=== PATIENT | female | born 1985 | race American Indian/Alaskan Native ===

== ENCOUNTER 2019-09-05 23:39 | Emergency (ER) | payer MEDICARE ==
[2019-09-06 00:25] LABS: Bilirubin,Urine NEG (Negative); Blood,Urine NEG (Negative); Color,Urine Yellow (Yellow); Mucus,Urine FEW /HPF; Protein,Urine <15 mg/dL mg/dL (Negative)
[2019-09-06 00:32] LABS: Amphetamine Screen,Urine PRESUMPTIVE NEGATIVE; Benzodiazepines Screen,Urine PRESUMPTIVE NEGATIVE; Cannabinoid Screen,Urine PRESUMPTIVE NEGATIVE; Methadone Screen,Urine PRESUMPTIVE NEGATIVE; Opiate Screen,Urine PRESUMPTIVE NEGATIVE
[2019-09-06 00:37] LABS: Basophils % (Auto) 0.4 % (0.0-1.8); Eosinophils # (Auto) 0.2 K/mm3 (0.0-0.4); Eosinophils % (Auto) 4.7 % (0.0-4.3); Hematocrit 36.3 % (30.3-42.9); Lymphocytes # (Auto) 1.5 K/mm3 (1.2-5.4); Lymphocytes % (Auto) 31.4 % (13.4-35.0); Mean Corpuscular HGB Conc 33 % (30-34); Mean Corpuscular Volume 92 fl (79-97); Monocytes # (Auto) 0.3 K/mm3 (0.0-0.8); Monocytes % (Auto) 6.2 % (0.0-7.3); Platelet Count 228 K/mm3 (140-440); Red Blood Count 3.95 M/mm3 (3.65-5.03); Red Cell Distribution Width 14.1 % (13.2-15.2)
[2019-09-06 00:55] LABS: BUN/Creatinine Ratio 16; Blood Urea Nitrogen 14 mg/dL (7-17); Hemolysis Index 3
[2019-09-06 00:59] LABS: HCG Qualitative,Urine Positive (Negative)
[2019-09-06 01:16] LABS: Calcium 9.1 mg/dL (8.4-10.2)
[2019-09-06 01:20] LABS: Cocaine Screen,Urine PRESUMPTIVE POSITIVE
--- NOTE | 2019-09-06 02:34 | Emergency Department Report ---
ED Psych HPI - General Chief Complaint: Psych Stated Complaint: SUICIDAL IDEATION DEPRESSION Time Seen by Provider: 09/06/19 02:01 Source: patient Mode of arrival: Ambulatory Limitations: No Limitations - History of Present Illness Initial Comments: Patient is a 33-year-old female that presents emergency room with complaints of depression and suicidal ideations. Patient states that she has a plan and she would probably overdose. Patient states she had depression for a long time. Patient states it is getting worse. Patient states she is hearing voices. Patient states that she talks to herself. Patient states she uses cocaine. Patient states she is is not . Patient denies homicidal ideations. Patient denies recent travel. Patient denies recent international travel. Patient denies exposure to the novel coronavirus. Patient denies sick contacts. Patient denies fever and chills. Patient denies cough. Patient denies diarrhe a. Patient denies coming in contact with anybody with symptoms of the novel coronavirus. MD Complaint: suicidal ideation, feels depressed -: Sudden Associated Psychiatric Symptoms: depression, suicidal ideation, racing thoughts, auditory hallucinations, visual hallucinations History of same: Yes Quality: constant Improves With: none Worsens With: none Context: recent alcohol abuse, recent drug abuse Associated Symptoms: denies other symptoms If Self Harm: admits thoughts of, has plan - Related Data Home Medications Medication Instructions Recorded Confirmed Last Taken No Known Home Medications [No 08/27/19 08/27/19 Unknown Reported Home Medications] Allergies Allergy/AdvReac Type Severity Reaction Status Date / Time No Known Allergies Allergy Verified 08/27/19 00:53 ED Review of Systems ROS: Stated complaint: SUICIDAL IDEATION DEPRESSION Other details as noted in HPI Constitutional: denies: chills, fever Eyes: denies: eye pain, eye discharge, vision change ENT: denies: ear pain, throat pain Respiratory: denies: cough, shortness of breath, wheezing Cardiovascular: denies: chest pain, palpitations Endocrine: no symptoms reported Gastrointestinal: denies: abdominal pain, nausea, diarrhea Genitourinary: denies: urgency, dysuria, discharge Musculoskeletal: denies: back pain, joint swelling, arthralgia Skin: denies: rash, lesions Neurological: denies: headache, weakness, paresthesias Psychiatric: depression, auditory hallucinations, visual hallucinations, suicidal thoughts. denies: anxiety, homicidal thoughts Hematological/Lymphatic: denies: easy bleeding, easy bruising ED Past Medical Hx - Past Medical History Previous Medical History?: Yes Hx Psychiatric Treatment: Yes (bipolar and schizo) - Surgical History Past Surgical History?: No - Family History Family history: no significant - Social History Smoking Status: Current Every Day Smoker Substance Use Type: Alcohol, Cocaine - Medications Home Medications: Home Medications Medication Instructions Recorded Confirmed Last Taken Type No Known Home Medications [No 08/27/19 08/27/19 Unknown History Reported Home Medications] ED Physical Exam - General Limitations: No Limitations General appearance: alert, in no apparent distress - Head Head exam: Present: atraumatic, normocephalic - Eye Eye exam: Present: normal appearance - ENT ENT exam: Present: mucous membranes moist - Neck Neck exam: Present: normal inspection - Respiratory Respiratory exam: Present: normal lung sounds bilaterally. Absent: respiratory distress - Cardiovascular Cardiovascular Exam: Present: regular rate, normal rhythm. Absent: systolic murmur, diastolic murmur, rubs, gallop - GI/Abdominal GI/Abdominal exam: Present: soft, normal bowel sounds - Extremities Exam Extremities exam: Present: normal inspection - Back Exam Back exam: Present: normal inspection - Neurological Exam Neurological exam: Present: alert, oriented X3 - Psychiatric Psychiatric exam: Present: depressed, flat affect, suicidal ideation - Skin Skin exam: Present: warm, dry, intact, normal color. Absent: rash ED Course Vital Signs 09/05/19 09/06/19 09/06/19 23:43 01:41 02:06 Temperature 98.2 F 97.9 F Pulse Rate 65 74 Respiratory 18 16 18 Rate Blood Pressure 118/66 Blood Pressure 114/58 [Left] O2 Sat by Pulse 100 99 99 Oximetry 09/06/19 07:47 Temperature 98.2 F Pulse Rate 60 Respiratory 20 Rate Blood Pressure Blood Pressure 134/106 [Left] O2 Sat by Pulse 99 Oximetry - Reevaluation(s) Reevaluation #1: Initial evaluation done. Patient denies . Patient states he uses cocaine. Patient placed on a ER hold. Patient will be evaluated by our mental health team. Labs done 09/06/19 02:01 Reevaluation #2: Patient is medically cleared. Patient will remain in the ER until she is cleared by our mental health and psychiatry team. Patient's final disposition will come from our psychiatry team. I discussed all results and clinical findings with patient. I discussed plan of care with patient. Patient agrees with plan of care. 09/06/19 02:33 ED Medical Decision Making - Lab Data Result diagrams: 09/06/19 00:18 09/06/19 00:18 - Medical Decision Making Patient is a 33-year-old female that presents emergency room with complaints of suicidal ideations and depression. Patient also complained of hallucinations. Patient also states she uses cocaine alcohol. Patient's labs were done. Patient's labs were essentially unremarkable except for cocaine and on UDS and a positive hCG. Patient does not have any abdominal pain or require ultrasound. Patient can follow-up as an outpatient with an DIRECTOR OF PERIOPERATIVE SERVICES for further evaluation and management of the . Patient is medically cleared and will remain in the ER on a ER hold. Patient will be evaluated by mental health and psychiatry team for final disposition. - Differential Diagnosis Suicidal ideations, depression, hallucinations. Drug use Critical care attestation.: If time is entered above; I have spent that time in minutes in the direct care of this critically ill patient, excluding procedure time. ED Disposition Clinical Impression: Suicidal ideation, Cocaine abuse Depression Qualifiers: Depression Type: unspecified Qualified Code(s): F32.9 - Major depressive disorder, single episode, unspecified Qualifiers: Weeks of gestation: unspecified Qualified Code(s): Z34.90 - Encounter for supervision of normal , unspecified, unspecified trimester Disposition: DC/TX-65 PSY HOSP/PSY UNIT Is pt being admited?: No Does the pt Need Aspirin: No Condition: Stable Additional Instructions: Patient to follow-up with primary care in 2 to 3 days. Patient to follow-up with DIRECTOR OF PERIOPERATIVE SERVICES in 2 to 3 days. Patient to start a vitamin. Patient to avoid drug and alcohol use. Patient to avoid NSAIDs and ibuprofen. Patient to rest. Patient to increase water. Referrals: PRIMARY CARE, [Referring] - 2-3 Days LATASHA MCDOWELL MD [Staff Physician] - 2-3 Days Time of Disposition: 02:37
[2019-09-06 07:48] VITALS: BP 134/106
== END 2019-09-06 10:20 ==
LOC: ED 23:39
DX: O99.341 Other mental disorders complicating pregnancy, first trimester (principal); O99.331 Smoking (tobacco) complicating pregnancy, first trimester; O26.891 Other specified pregnancy related conditions, first trimester; F25.0 Schizoaffective disorder, bipolar type; R45.851 Suicidal ideations; F14.90 Cocaine use, unspecified, uncomplicated; Z3A.01 Less than 8 weeks gestation of pregnancy
CPT/HCPCS: 36415; 80048; 80307; 80320; 81001; 81025; 84703; 85025; G0480

== ENCOUNTER 2019-09-24 20:30 | Emergency (ER) | payer MEDICARE ==
[2019-09-24 21:17] LABS: Basophils % (Auto) 0.5 % (0.0-1.8); Eosinophils # (Auto) 0.2 K/mm3 (0.0-0.4); Eosinophils % (Auto) 4.7 % (0.0-4.3); Hematocrit 33.5 % (30.3-42.9); Hemoglobin 11.1 gm/dl (10.1-14.3); Lymphocytes # (Auto) 1.3 K/mm3 (1.2-5.4); Lymphocytes % (Auto) 34.1 % (13.4-35.0); Mean Corpuscular HGB Conc 33 % (30-34); Mean Corpuscular Volume 92 fl (79-97); Monocytes # (Auto) 0.4 K/mm3 (0.0-0.8); Monocytes % (Auto) 10.8 % (0.0-7.3); Platelet Count 222 K/mm3 (140-440); Red Blood Count 3.62 M/mm3 (3.65-5.03); Red Cell Distribution Width 14.4 % (13.2-15.2)
[2019-09-24 21:37] LABS: BUN/Creatinine Ratio 13; Blood Urea Nitrogen 13 mg/dL (7-17); Calcium 8.4 mg/dL (8.4-10.2); Hemolysis Index 7
[2019-09-24 21:40] LABS: Bacteria,Urine 1+ /HPF (Negative); Bilirubin,Urine NEG (Negative); Blood,Urine LG (Negative); Color,Urine Yellow (Yellow); Mucus,Urine 2+ /HPF; Protein,Urine <15 mg/dL mg/dL (Negative)
[2019-09-24 21:50] LABS: Amphetamine Screen,Urine PRESUMPTIVE NEGATIVE; Benzodiazepines Screen,Urine PRESUMPTIVE NEGATIVE; Cannabinoid Screen,Urine PRESUMPTIVE NEGATIVE; Methadone Screen,Urine PRESUMPTIVE NEGATIVE; Opiate Screen,Urine PRESUMPTIVE NEGATIVE
[2019-09-24 22:05] LABS: Cocaine Screen,Urine PRESUMPTIVE POSITIVE
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
[2019-09-25 13:45] VITALS: BP 117/54
== END 2019-09-25 14:59 ==
LOC: ED 20:30
DX: R45.851 Suicidal ideations (principal); F23 Brief psychotic disorder; F31.9 Bipolar disorder, unspecified
CPT/HCPCS: 36415; 80048; 80307; 80320; 81001; 84703; 85025; G0480